=== PATIENT | male | born 1985 | race American Indian/Alaskan Native ===

== ENCOUNTER 2022-12-07 01:53 | Inpatient (IN) | payer MEDICAID ==
[~2022-12-07] VITALS: Ht 157.5 cm; Wt 120.6 kg
[2022-12-08] MEDS ORDERED: loperamide 2mg capsule PO PRN (13:15)
[2022-12-08] MEDS ORDERED: acetaminophen 325mg tablet PO PRN ×2 (13:15)
[2022-12-08] MEDS ORDERED: mag hydrox/Alum hydrox/simeth 30ml oral suspension PO PRN (13:15)
[2022-12-08] MEDS ORDERED: magnesium hydroxide 30ml (MOM) UD suspension PO PRN (13:15)
[2022-12-08 13:28] VITALS: BP 160/100; PULSE 112; RESP 16; TEMP 98.3; O2SAT 97
--- NOTE | 2022-12-08 14:31 | NUR ---
Admit note: [facility]150 for DTS from our ER at 1240. Pt is struggling with depression, anxiety and active suicidal ideation. Pt wants to by suicide and has access to guns. Pt has history of HTN, depression. Addendum: 12/08/22 at 1719 by Haley Novoa RN Pt. scores as a high risk on the [place] Suicide Risk Assessment, however is able to contract for safety while on the unit. This was endorsed to ABDULKADIR Penny and Q 15min safety checks were ordered. Pt. had an elevated blood pressure and pulse upon admission, and scheduled Lisinopril was administered. BP and pulse were rechecked and are now WNL. Pt's morning medications were also administered per ABDULKADIR Penny per report that he had not received them at [facility] prior to discharge. Pt. was placed on the [facility] alcohol withdrawal assessment Q4 hours per ABDULKADIR Penny. He reports his last drink was 12/05/22. Pt. wears a C-pap at for sleep apnea, will endorse to Margot armenta.
[2022-12-08] MEDS ORDERED: METF-900 PO (14:46)
[2022-12-08] MEDS ORDERED: CETI10TA14 PO (14:46)
[2022-12-08] MEDS ORDERED: MULT-1249 PO (14:46)
[2022-12-08] MEDS ORDERED: PANT40TA54 PO (14:46)
[2022-12-08] MEDS ORDERED: NAPR500T6 PO (14:46)
[2022-12-08] MEDS ORDERED: LISI20TA28 PO (14:46)
[2022-12-08] MEDS ORDERED: TRAZ-251 PO (14:50)
[2022-12-08] MEDS ORDERED: PRED20TA PO (14:50)
[2022-12-08] MEDS ORDERED: TRIA454O TOP (14:50)
[2022-12-08] MEDS ORDERED: naproxen 500mg tablet PO ONE (15:45)
[2022-12-08] MEDS: cetirizine 10mg tablet PO SCH (15:49)
[2022-12-08] MEDS: metFORMIN 500mg tablet PO SCH (15:49)
[2022-12-08] MEDS: lisinopril 20mg tablet PO SCH (15:49)
[2022-12-08] MEDS: pantoprazole 40mg Tablet.DR PO SCH (15:50)
[2022-12-08 15:54] VITALS: RESP 16; O2SAT 97
[2022-12-08 17:19] VITALS: BP 150/85; PULSE 88
[2022-12-08 19:00] VITALS: RESP 18; O2SAT 95
[2022-12-08 19:30] VITALS: BP 146/87; PULSE 104; RESP 18; TEMP 98.8; O2SAT 95
[2022-12-08] MEDS: traZODone 50mg tablet PO SCH (20:49)
[2022-12-08] MEDS: naproxen 500mg tablet PO SCH (20:50)
[2022-12-08] MEDS: triamcinolone acetonide 0.1% ointment 15gm TP SCH (20:50)
--- NOTE | 2022-12-09 01:32 | NUR ---
NURSING PROGRESS NOTE Problem: Pt admitted to [facility] [place] [facility] today on a 5150 for DTS from our ER at 1240. Pt is struggling with depression, anxiety and active suicidal ideation. Pt wants to by suicide and has access to guns. Pt has history of HTN, depression. Interventions: Maintained a safe and supportive environment, provided clear and simple instructions, attempted to orient to reality, provided active listening and positive encouragement, encouraged participation on the unit, and maintained Q 15min safety checks. Response: Pt. was received in the dining room at change of shift. Pt. is pleasant and cooperative. Pt. is medication compliant. He denies SI/HI/AH/VH. Pt. observed using the phone and appears to be in a good mood. Pt. participated in evening snack. Pt. did not want to use CPAP tonight. Observed and appears to be sleeping without difficulty. Plan: safe and supportive environment.
--- NOTE | 2022-12-09 03:11 | NUR ---
CANDY CATCHER documentation: I have reviewed and agree with all interventions, assessments performed and documented by Manisha Gandhi LVN
[2022-12-09 07:00] VITALS: RESP 18; O2SAT 96
[2022-12-09 07:49] LABS: CHOL/HDL RATIO 3.9 (0.00-4.99); CHOLESTEROL 153 MG/DL (0-200); HDL CHOLESTEROL 39 MG/DL (35-60); LDL CHOLESTEROL 75 MG/DL (50-100); TRIGLYCERIDES 378 MG/DL (20-135)
[2022-12-09 08:00] VITALS: BP 122/86; PULSE 82; RESP 18; TEMP 97.8; O2SAT 96
[2022-12-09 08:20] LABS: HEMOGLOBIN A1C 6.2 % (4.5-6.2)
[2022-12-09] MEDS: multivitamins, therapeutics tablet PO SCH (08:23)
[2022-12-09] MEDS: naproxen 500mg tablet PO SCH ×2 (08:23→21:18)
[2022-12-09] MEDS: lisinopril 20mg tablet PO SCH (08:23)
[2022-12-09] MEDS: pantoprazole 40mg Tablet.DR PO SCH (08:23)
[2022-12-09] MEDS: metFORMIN 500mg tablet PO SCH (08:23)
[2022-12-09] MEDS: cetirizine 10mg tablet PO SCH (08:24)
[2022-12-09] MEDS: triamcinolone acetonide 0.1% ointment 15gm TP SCH ×2 (08:24→21:18)
[2022-12-09] MEDS ORDERED: ondansetron/PF 4mg/2ml inj IV PRN (14:45)
[2022-12-09] MEDS ORDERED: metoclopramide 5 mg/ml inj IV PRN (14:45)
[2022-12-09] MEDS ORDERED: acetaminophen 325mg tablet PO PRN ×2 (14:45)
[2022-12-09] MEDS ORDERED: diphenhydrAMINE 25mg capsule PO PRN (14:45)
[2022-12-09] MEDS ORDERED: HYDROcodone/acetaminophen 10/325mg tab PO PRN (14:45)
[2022-12-09] MEDS ORDERED: bisacodyl 10mg suppository rectal RC PRN (14:45)
[2022-12-09] MEDS ORDERED: diphenhydrAMINE 50 mg/ml inj IV PRN (14:45)
[2022-12-09] MEDS ORDERED: magnesium hydroxide 30ml (MOM) UD suspension PO PRN (14:45)
[2022-12-09] MEDS ORDERED: acetaminophen 650mg rectal suppository RC PRN (14:45)
[2022-12-09] MEDS ORDERED: HYDROcodone/acetaminophen 5mg/325mg tablet PO PRN (14:45)
[2022-12-09] MEDS ORDERED: mag hydrox/Alum hydrox/simeth 30ml oral suspension PO PRN (14:45)
[2022-12-09] MEDS ORDERED: insulin Lispro (HumaLOG) vial - multi-dose SQ SCH (14:50)
[2022-12-09] MEDS ORDERED: glucagon, human recombinant 1mg kit SUBCUT PRN (14:50)
[2022-12-09] MEDS ORDERED: MESSAGE TO PHARMACY PO ONE (14:50)
[2022-12-09] MEDS ORDERED: DEXTROSE 15 GM of carb/4 tabs (each vial/BOTTLE has 4 tablets) PO PRN ×2 (14:50)
[2022-12-09] MEDS ORDERED: dextrose 50%-water 50ml dispensing syringe IV PRN ×2 (14:50)
[2022-12-09 15:18] LABS: BASOPHILS # (AUTO) 0.1 X10'3 (0-0.2); BASOPHILS % (AUTO) 0.6 % (0-1); EOSINOPHILS # (AUTO) 0.2 X10'3 (0-0.9); EOSINOPHILS % (AUTO) 2.2 % (0-6); HEMATOCRIT 41.9 % (42.0-52.0); LYMPHOCYTES # (AUTO) 1.5 X10'3 (1.1-4.8); LYMPHOCYTES % (AUTO) 15.8 % (21-51); MEAN CORPUSCULAR HEMOGLOBIN 28.4 PG (27.0-31.0); MEAN CORPUSCULAR HGB CONC 33.4 g/dL (33.0-36.5); MEAN PLATELET VOLUME 8.5 FL (7.4-10.4); MONOCYTES # (AUTO) 0.6 X10'3 (0-0.9); MONOCYTES % (AUTO) 6.5 % (2-12); NEUTROPHILS # (AUTO) 7.1 X10'3 (1.8-7.7); NEUTROPHILS % (AUTO) 74.9 % (42-75); PLATELET COUNT 243 X10'3 (140-440); RED BLOOD COUNT 4.93 X10'6 (4.70-6.10); WHITE BLOOD COUNT 9.5 X10'3 (4.5-11.0)
[2022-12-09 15:27] LABS: APTT 26 SECONDS (22-32)
[2022-12-09 15:36] LABS: ALANINE AMINOTRANSFERASE 101 U/L (12-78); ALBUMIN 3.3 G/DL (3.4-5.0); ALBUMIN/GLOBULIN RATIO 0.9 (1.1-1.5); ALKALINE PHOSPHATASE 95 IU/L (46-116); ANION GAP 8 (8-16); ASPARTATE AMINO TRANSFERASE 69 U/L (10-37); BILIRUBIN,TOTAL 0.5 MG/DL (0.1-1.0); BLOOD UREA NITROGEN 21 MG/DL (7-18); BUN/CREATININE RATIO 21.9 (10.0-20.0); CALCIUM 8.9 MG/DL (8.5-10.1); CHLORIDE 100 MMOL/L (99-107); CREATININE 0.96 MG/DL (0.60-1.10); GLUCOSE 113 MG/DL (70-104); MAGNESIUM 1.7 MG/DL (1.5-2.4); PHOSPHORUS 3.5 MG/DL (2.3-4.5); SODIUM 137 MMOL/L (135-145); TOTAL CARBON DIOXIDE 29.4 MMOL/L (24-32); TOTAL PROTEIN 7.1 G/DL (6.4-8.2); eCRCL 80 ML/MIN; eGFR 87 ML/MIN
[2022-12-09 15:41] LABS: INR 0.9 INR; POTASSIUM 4.3 MMOL/L (3.5-5.1); PRO BRAIN NATRIURETIC PEPTIDE < 30 PG/ML (0-125)
[2022-12-09 17:09] LABS: BILIRUBIN,URINE NEGATIVE (Neg); CLARITY,URINE SLIGHTLY CLOUDY (Clear); COLOR,URINE YELLOW (Yellow); GLUCOSE, URINE NEGATIVE (Neg); KETONES,URINE NEGATIVE (Neg); LEUKOCYTE ESTERASE ,URINE NEGATIVE (Neg); NITRITES, URINE NEGATIVE (Neg); OCCULT BLOOD,URINE NEGATIVE (Neg); PROTEIN,URINE NEGATIVE (Neg); UROBILINOGEN,URINE 0.2 E.U/dL (0.2-1.0)
[2022-12-09 17:20] LABS: UA COLLECTION TYPE CLN CATCH MIDSTREAM
[2022-12-09 17:21] LABS: BACTERIA,URINE FEW /HPF (Neg); RBC,URINE 0-2 /HPF (0-2); SQUAMOUS EPITHELIAL CELL,UR MANY /LPF (FEW); WBC,URINE 0-4 /HPF (0-4)
[2022-12-09 17:22] LABS: AMORPHOUS PHOSPHATES 2+; MUCUS STRANDS FEW /LPF (Neg)
--- NOTE | 2022-12-09 17:29 | NUR ---
DM Consults: Pt hx pre-diabetes takes daily metformin at home A1C 6.2% w/ Glu 113mg/dl and TG 378mg/dl per EMR. ZULMA d/w RN recommends cancelling carb restriction and transition to heart healthy diet if MD agreeable. Pt A1C appropriate and admit w/ SI would not be appropriate for DM ed at this time even if A1C was elevated. Addendum: 12/09/22 at [address] Amended: Links added.
--- NOTE | 2022-12-09 17:50 | NUR ---
Nursing Progress Note Problem: Pt admitted to [facility] today on a 5150 for DTS from our ER at 1240. Pt is struggling with depression, anxiety and active suicidal ideation. Pt wants to by suicide and has access to guns. Pt has history of HTN, depression. Interventions : Maintained a safe and supportive environment, ensured contract for safety, provided clear and simple instructions, provided active listening and positive encouragement, maintained CIWA assessment per orders, and maintained Q 15min safety check. Response : Received pt. sleeping in bed at the beginning of the shift, he was awoken to attend breakfast in the Group Room, and afterwards retreated back to his room. 1:1 was completed at bedside, pt. presents as cooperative, anxious, and withdrawn. He denies any current S/I and states, "It was just one bad moment when I acted out irrationally." Pt denies any H/I, A/V/ROMEO, and no delusional statements were made. He does endorse some anxiety r/t to his desire to get back home back to family and friends. Pt. goes on to talk about how alcohol has always been a coping mechanism for him. He had been sober for five months, but recently relapsed. Pt. presents with good insight and reports he knows that alcohol is an ineffective coping mechanism and he would like to possibly attend a rehab program. [facility] Alcohol Withdrawal Assessment was completed as ordered and pt. exhibits no current s/s of withdrawal Pt. remained withdrawn in his room throughout much of the morning, but was observed to be up on the unit in the afternoon interacting with others. Accuchecks to monitor pt's blood glucose were changed from ACHS to daily per ABDULKADIR Penny as pt. is currently taking Metformin. Plan : Pt. requires interruption of current crisis, medication adjustments, and Q 15min safety checks.
[2022-12-09 19:00] VITALS: RESP 18; O2SAT 94
[2022-12-09 20:00] VITALS: BP 134/80; PULSE 99; RESP 18; TEMP 98; O2SAT 94
[2022-12-09] MEDS: docusate sod 100mg capsule PO SCH ×2 (20:00→21:17)
[2022-12-09] MEDS ORDERED: gemfibrozil 600mg tablet PO SCH (20:00)
[2022-12-09] MEDS ORDERED: temazepam 15mg capsule PO PRN (21:00)
[2022-12-09] MEDS ORDERED: insulin glargine (Lantus) pen - multi-dose SQ SCH (21:00)
[2022-12-09] MEDS: traZODone 50mg tablet PO SCH (21:19)
[2022-12-09] MEDS ORDERED: diphenhydrAMINE 50 mg/ml inj ONE (23:23)
[2022-12-09] MEDS ORDERED: diphenhydrAMINE 50 mg/ml inj IM ONE (23:25)
[2022-12-09] MEDS ORDERED: famotidine 20mg tablet PO ONE (23:30)
[2022-12-09] MEDS: ondansetron 4mg rapidly disintigrating tab PO PRN (23:44)
--- NOTE | 2022-12-09 23:47 | NUR ---
Pt woke up stating "I think I am having an allergic reaction." Pt was red on his arms and trunk and face and facewas swollen. OCP Dr. Murillo was contacted and came and saw the patient, v/s taken and B/P 117/70 HR 129 RR18 O2 sat 94%, no wheezing, no respiratory distress. Order given to give Benadryl 25 mg IM now, and Pepcid 20 mg, he ordered to D/C patients Lopid as this was the only new medication the patient was given. Put Lopid on allergy list. Pt began to have nausea and said he felt like he was going to vomit so Zofran was administered. V/S rechecked and HR 85 O2 sats 96% RR 18 B/P 125/83. Will continue to monitor.
[2022-12-10] MEDS ORDERED: diphenhydrAMINE 50 mg/ml inj IM ONE (00:40)
--- NOTE | 2022-12-10 00:41 | NUR ---
Pt was doing better, redness had improved, vitals were stable, but at this time pt is beginning to have redness and rash again diffusely . Contacted Dr. Murillo again and he ordered 25 mg IM of Benadryl again, will continue to monitor. V/S taken and are B/P 103/75 HR 111 R 18 02 95. Pts nurse is sitting bedside to monitor patient. Pt reports that he normally requires an Epi pen for his allergic reactions, he has mutliple food and drug allergies.
[2022-12-10] MEDS ORDERED: diphenhydrAMINE 25mg capsule PO PRN (01:35)
[2022-12-10] MEDS ORDERED: predniSONE 20 mg tablet PO ONE (01:35)
--- NOTE | 2022-12-10 01:36 | NUR ---
Dr. Murillo returned to check on patient and even after 2nd dose of Benadryl pt is still red, has diffuse rash, facial swelling. Dr. Murillo ordered Prendisone 20 mg po x1 now and Benadryl 50 mg po Q4 hrs prn itching.
[2022-12-10] MEDS ORDERED: prednisone 10mg tablet PO ONE (01:40)
--- NOTE | 2022-12-10 03:48 | NUR ---
Nursing Progress Note Problem: Pt admitted to [facility] today on a 5150 for DTS from our ER at 1240. Pt is struggling with depression, anxiety and active suicidal ideation. Pt wants to by suicide and has access to guns. Pt has history of HTN, depression. Interventions : Maintained a safe and supportive environment, ensured contract for safety, provided clear and simple instructions, provided active listening and positive encouragement, maintained CIWA assessment per orders, and maintained Q 15min safety check. Response : Pt. received in room sitting at the foot of his bed socializing with room mate. Pt. is pleasant and cooperative. During MH assessment pt. reports having a good day. Pt. denies SI/HI/VH/AH. Pt. expresses he wants to stop drinking. States that he is ready to get home to his family. Pt. was started on a new medication tonight, Lopid 600mg for elevated Triglycerides. A couple of hours after taking Lopid pt. had an allergic reaction. Please see CRN notes. Plan : Pt. requires interruption of current crisis, medication adjustments, and Q 15min safety checks.
[2022-12-10 07:00] VITALS: RESP 12; O2SAT 95
[2022-12-10 07:33] VITALS: BP 118/78; PULSE 90; RESP 12; TEMP 98.4; O2SAT 95
[2022-12-10 08:12] VITALS: BP_SYST 118; PULSE 90
[2022-12-10] MEDS: cetirizine 10mg tablet PO SCH (08:12)
[2022-12-10] MEDS: metFORMIN 500mg tablet PO SCH (08:12)
[2022-12-10] MEDS: docusate sod 100mg capsule PO SCH (08:12)
[2022-12-10] MEDS: triamcinolone acetonide 0.1% ointment 15gm TP SCH (08:12)
[2022-12-10] MEDS: multivitamins, therapeutics tablet PO SCH (08:12)
[2022-12-10] MEDS: lisinopril 20mg tablet PO SCH (08:12)
[2022-12-10] MEDS: pantoprazole 40mg Tablet.DR PO SCH (08:13)
[2022-12-10] MEDS: naproxen 500mg tablet PO SCH (08:13)
--- NOTE | 2022-12-10 14:09 | NUR ---
DISCHARGE PLAN Eliseo is discharging today. He denied any current SI. ABDULKADIR Barreto, spoke to his who is reportedly comfortable with him returning home. Scheduled him follow up with his PCP at [facility] in [place]. He reported he has friend/family that are able to pick him up today. HERO Brock
--- NOTE | 2022-12-10 17:50 | NUR ---
DISCHARGE NOTE: Patient denies SI. Patient had a bad night last night due to an allergy, but has had a pretty good day. Patient left with all his belongings. His cousin picked him up and patient is discharged in stable condition.
[2022-12-11 11:38] LABS: HBSAG SCREEN Negative (Negative); HEP B CORE AB, IGM Negative (Negative); HEP B CORE AB, TOT Negative (Negative)
== END 2022-12-10 17:56 | disposition home or self-care (01) | DRG 755 ==
LOC: ADULT MH 12-08 12:45
PROVIDERS: ADMIT Psychiatry & Neurology Psychiatry; ATTEND Psychiatry & Neurology Psychiatry
DX: F43.25 Adjustment disorder with mixed disturbance of emotions and conduct (principal); R45.851 Suicidal ideations; K76.0 Fatty (change of) liver, not elsewhere classified; E11.65 Type 2 diabetes mellitus with hyperglycemia; E66.01 Morbid (severe) obesity due to excess calories; Z68.42 Body mass index [BMI] 45.0-49.9, adult; F32.A Depression, unspecified; G47.33 Obstructive sleep apnea (adult) (pediatric); E78.1 Pure hyperglyceridemia; E78.5 Hyperlipidemia, unspecified; K21.9 Gastro-esophageal reflux disease without esophagitis; I10 Essential (primary) hypertension; N40.0 Benign prostatic hyperplasia without lower urinary tract symptoms; Y90.7 Blood alcohol level of 200-239 mg/100 ml; Z79.84 Long term (current) use of oral hypoglycemic drugs; Z80.3 Family history of malignant neoplasm of breast; Z82.0 Family history of epilepsy and other diseases of the nervous system; Z82.3 Family history of stroke; Z82.49 Family history of ischemic heart disease and other diseases of the circulatory system; Z83.3 Family history of diabetes mellitus; Z88.0 Allergy status to penicillin; Z88.1 Allergy status to other antibiotic agents; Z88.6 Allergy status to analgesic agent; Z90.49 Acquired absence of other specified parts of digestive tract; Z79.899 Other long term (current) drug therapy; Z71.3 Dietary counseling and surveillance
CPT/HCPCS: 36415; 80053; 80061; 81001; 83036; 83735; 83880; 84100; 85025; 85610; 85730; 86704; 86705; 87081; 87340; J1200; J1815; J7512